=== PATIENT | female | born 1980 | race American Indian/Alaskan Native ===

== ENCOUNTER 2016-03-31 16:03 | Emergency (ER) | payer SELFPAY ==
[2016-03-31 16:22] VITALS: BP 109/76
[2016-03-31] MEDS ORDERED: MOTRIN PO ONE (20:02)
[2016-03-31] MEDS ORDERED: FLEXERIL PO ONE (20:02)
--- NOTE | 2016-03-31 20:06 | Emergency Department Report ---
HPI - General Chief Complaint: Back Pain/Injury Time Seen by Provider: 03/31/16 19:50 - HPI HPI: Patient is a 36-year-old female who presents to the ED complaining of left lower leg pain times one week. Patient states about a week ago she saw Her Left Thigh. Patient States She Does Not Recall Hitting, Falling or Trauma to the Leg. Patient Described Lower Leg Anterior Throbbing/Aching Type Pain. Rates the Pain about a 7 Out Of 10 Intensity. Patient States sHe Feels like Spasms on Her Anterior Lower Leg. Patient Denies calf Pain Bilaterally. Patient Denies Shooting Pain from Back to Radiating down Her Legs. The Patient Denies Fevers/Chills/Vomiting/Nausea/Abdominal Pain/Chest Pain/Trauma Such Any Other Problems ED Past Medical Hx - Past Medical History Previous Medical History?: No Additional medical history: c sect - Surgical History Past Surgical History?: No - Social History Smoking Status: Never Smoker Substance Use Type: None - Medications Home Medications: Home Medications Medication Instructions Recorded Confirmed Last Taken Type Cyclobenzaprine [Flexeril] 10 mg PO TID PRN #20 tablet 03/31/16 Unknown Rx Ibuprofen [Motrin] 800 mg PO Q8HR PRN #30 tablet 03/31/16 Unknown Rx ED Review of Systems ROS: Stated complaint: LT LEG PAIN Other details as noted in HPI Constitutional: denies: chills, fever Eyes: denies: eye pain, eye discharge, vision change ENT: denies: ear pain, throat pain Respiratory: denies: cough, shortness of breath, wheezing Cardiovascular: denies: chest pain, palpitations Endocrine: no symptoms reported Gastrointestinal: denies: abdominal pain, nausea, diarrhea Genitourinary: denies: urgency, dysuria, discharge Musculoskeletal: myalgia. denies: back pain, joint swelling, arthralgia Skin: denies: rash, lesions Neurological: denies: headache, weakness, numbness, paresthesias, confusion, abnormal gait, vertigo Psychiatric: denies: anxiety, depression Hematological/Lymphatic: denies: easy bleeding, easy bruising Physical Exam - Physical Exam Vital Signs: Vital Signs 03/31/16 16:18 Temperature 98.7 F Pulse Rate 83 Respiratory 17 Rate Blood Pressure 109/76 [Right] O2 Sat by Pulse 100 Oximetry Physical Exam: GENERAL: Alert and oriented x3, no apparent distress, Normal Gait, atraumatic. HEAD: Head is normocephalic and a-traumatic. EYES: Extra ocular muscles are intact. Pupils are equal, round, and reactive to light and accommodation. EARS: symetrical, atraumatic, non tender, ear canal clear and moderate cerumen, tympanic membrance non inflamed. gross auditory nml bilaterally. NOSE: Nose symetrical, Nontender,Nares appeared normal. MOUTH:Mouth is well hydrated and without lesions. Tonsils nonerythematous or swollen, Uvula midline, Tongue not elevated. Mucous membranes are moist. Posterior pharynx clear, no exudate or lesions. Patent airways. NECK: Supple. Non edematous, No carotid bruits. No lymphadenopathy or thyromegaly. LUNGS: Symetrical with respiration, No wheezing, no rales or crackles, CTAB. HEART: S1, S2 present, regular rate and rhythm without murmur, no rubs, no gallops. ABDOMEN: No organomegaly was noted,Positive bowel sounds, soft, and non- distended. . Nontender to palpation on all Quadrants, NO CVA tenderness. arge. EXTREMITIES/MUSCULOSKELETAL: No cyanosis, clubbing, rash, lesions or edema. Full ROM bilaterally. UE/LE Pulses 2+ bilaterally. LE and UE 5+ strength bilaterally. Negative SLR NEUROLOGIC: No focal Deficit, Cranial nerves II through XII are grossly intact. No loss of sensation, No facial droop, SKIN: Warm and dry, No lesions, No ulceration or induration present. ED Course Vital Signs 03/31/16 16:18 Temperature 98.7 F Pulse Rate 83 Respiratory 17 Rate Blood Pressure 109/76 [Right] O2 Sat by Pulse 100 Oximetry ED Medical Decision Making - Medical Decision Making 36-year-old female presents with muscle spasms. Patient alert and oriented 3 in no distress. Vital signs stable ED course: Patient received 1 tablet 800 mg of Motrin and 10 mg of Flexeril ED. Discussed home medication with Motrin and Flexeril. Described the drowsiness effect of Flexeril and do not drive or work while taking Flexeril. Discussed taking a break every 15 minutes at work to walking Discussed to follow up with primary care physician. Patient states she verbally understands and will comply. Critical care attestation.: If time is entered above; I have spent that time in minutes in the direct care of this critically ill patient, excluding procedure time. ED Disposition Clinical Impression: Myalgia Muscle spasms of lower extremity Qualifiers: Laterality: left Qualified Code(s): M62.838 - Other muscle spasm Disposition: DISCHARGED TO HOME OR SELFCARE Is pt being admited?: No Does the pt Need Aspirin: No Condition: Stable Instructions: Trigger Point Pain (ED), Musculoskeletal Pain (ED), Muscle Spasm (ED) Prescriptions: Cyclobenzaprine [Flexeril] 10 mg PO TID PRN #20 tablet PRN Reason: Muscle Spasm Ibuprofen [Motrin] 800 mg PO Q8HR PRN #30 tablet PRN Reason: Pain Referrals: PRIMARY CARE, [Primary Care Provider] - 3-5 Days [facility] [Outside] - 3-5 Days [facility] [Outside] - 3-5 Days [facility] [Outside] - 3-5 Days Forms: Accompanied Note, Work/School Release Form(ED) Time of Disposition: 20:32
== END 2016-03-31 20:47 | disposition home or self-care (01) ==
LOC: ED 16:03
DX: M79.1 Myalgia (principal); M62.838 Other muscle spasm
CPT/HCPCS: 99282